=== PATIENT | male | born 1990 | race Caucasian/White ===

== ENCOUNTER 2018-06-09 11:10 | Emergency (ER) | payer MEDICAID ==
[~2018-06-09] VITALS: Ht 175.3 cm; Wt 77.1 kg
[2018-06-09 11:15] VITALS: BP_SYST 138
[2018-06-09 11:44] LABS: BILIRUBIN,URINE NEGATIVE (NEGATIVE); BLOOD, URINE 1+ (NEGATIVE); GLUCOSE,URINE NEGATIVE (NEGATIVE); KETONES,URINE NEGATIVE (NEGATIVE); LEUKOCYTE ESTERASE ,URINE 3+ (NEGATIVE); NITRITE, URINE NEGATIVE (NEGATIVE); PROTEIN URINE TRACE (NEGATIVE); UROBILINOGEN,URINE 0.2 (0.2-1.0)
[2018-06-09] MEDS ORDERED: cefTRIAXone 250 MG VIAL IM ONE (11:45)
[2018-06-09] MEDS ORDERED: AZITHROMYCIN 250 MG TABLET PO ONE (11:45)
[2018-06-09 11:49] LABS: CLARITY/URINE CLOUDY (CLEAR); COLOR,URINE YELLOW (YELLOW)
[2018-06-09 11:58] LABS: BACTERIA,URINE MODERATE /HPF (None Seen); MUCUS,URINE 1+ /LPF (None Seen); WBC,URINE >100 /HPF (0-3)
[2018-06-09 12:10] VITALS: BP_SYST 138
== END 2018-06-09 12:10 | disposition home or self-care (01) ==
LOC: SED 11:10
DX: N34.1 Nonspecific urethritis (principal); F17.200 Nicotine dependence, unspecified, uncomplicated; R03.0 Elevated blood-pressure reading, without diagnosis of hypertension; Z11.3 Encounter for screening for infections with a predominantly sexual mode of transmission
CPT/HCPCS: 81000; 87086; 87491; 87591; 96372; 99284; J0696; Q0144